=== PATIENT | male | born 1965 | race Caucasian/White ===

== ENCOUNTER → 2018-03-20 | Outpatient (CLI) | payer BC | LOC: BMCIMAGING 07:48 | PROVIDERS: ATTEND Nurse Practitioner Adult Health | DX: M17.0 Bilateral primary osteoarthritis of knee (principal); M24.052 Loose body in left hip ==

== ENCOUNTER → 2018-08-22 | Outpatient (CLI) | payer BC ==
[~2018-08-22] MED LIST: IOPAMIDOL (ISOVUE-300) 100 ML BTL ONE
[2018-08-22 13:26] LABS: PLATELET COUNT 272 10^3/uL (150-400)
== END ==
LOC: FIMAGING 11:22
PROVIDERS: ATTEND Internal Medicine
DX: R10.9 Unspecified abdominal pain (principal); K59.00 Constipation, unspecified; K76.89 Other specified diseases of liver; Z87.442 Personal history of urinary calculi
CPT/HCPCS: Q9967